=== PATIENT | male | born 1990 | race Caucasian/White ===

== ENCOUNTER → 2016-11-21 | Outpatient (CLI) | payer BC ==
[~2016-11-21] MED LIST: FLUT0.15 NAE; JUICE PLUS PO; LORA10TA44 PO; OXYC-57 PO
[2016-11-21 13:17] LABS: BASO % 0.6 %; BASO ABS # 0.04 K/uL (0-0.2); COMPLETE YES; EOS % 1.5 %; HEMATOCRIT 44.7 % (42-52); IG% 0.1 %; LYMPH % 21.2 %; LYMPH ABS # 1.51 K/uL (1.2-3.4); MEAN CELL VOLUME 88.7 fL (80-100); MEAN CORPUSCULAR HEMOGLOBIN 30.4 pg (25-34); MEAN CORPUSCULAR HGB CONC 34.2 g/dl (32-36); MEAN PLATELET VOLUME 12.7 fL (7.4-10.4); MONO % 11.4 %; NEUT % 65.2 %; PLATELET COUNT 193 K/uL (130-400); RED BLOOD COUNT 5.04 M/uL (4.7-6.1); WHITE BLOOD COUNT 7.13 K/uL (4.8-10.8)
[2016-11-21 13:59] LABS: BLOOD UREA NITROGEN 9 mg/dl (7-18); CALCIUM 9.2 mg/dl (8.5-10.1); CARBON DIOXIDE 29 mmol/L (21-32); CHLORIDE 105 mmol/L (98-107); CREATININE 0.94 mg/dl (0.60-1.40); GLUCOSE 89 mg/dl (70-99); POTASSIUM 4.2 mmol/L (3.5-5.1); SODIUM 140 mmol/L (136-145)
== END | disposition home or self-care (01) ==
LOC: C.LABBC 10:53
PROVIDERS: ATTEND Surgery
DX: Z01.812 Encounter for preprocedural laboratory examination (principal); K40.90 Unilateral inguinal hernia, without obstruction or gangrene, not specified as recurrent

== ENCOUNTER → 2016-12-09 | Day surgery (SDC) | payer BC ==
[2016-11-21 14:11] VITALS: Ht 165.1 cm; Wt 63.6 kg
[~2016-12-09] VITALS: Ht 165.1 cm; Wt 63.6 kg
[~2016-12-09] MED LIST changes: +ATROPINE SULFATE 0.1 MG/ML 5ML SYR IV PRN; +BUPIVACAINE 0.5 % 5 MG/1 ML PF 10ML VIAL ONE; +DEXAMETHASONE SOD INJ 4 MG/ML VIAL IV PRN; +DEXAMETHASONE SOD INJ 4 MG/ML VIAL ONE; +EpHEDrine SULFATE INJ 50 MG/ML AMP IV PRN; +FENTANYL CITRATE INJ 50 MCG/1 ML 2 ML VIAL IV PRN; +FENTANYL CITRATE INJ 50 MCG/1 ML 2 ML VIAL ONE; +KETOROLAC TROMETHAMINE 30 MG/ML VIAL IV. PRN; +LABETALOL HCL IV 5 MG/ML 20ML IV PRN; +LACTATED RINGER'S 1000ML 1,000 ML IV SCH; +LIDOCAINE HCL 2% 2 ML VIAL (20MG/ML) ONE; +METOCLOPRAMIDE HCL INJ 5 MG/ML 2 ML VIAL IV PRN; +MIDAZOLAM HCL 1 MG/ML 2ML VIAL ONE; +MoRPHine SULFATE 10 MG/ML CARP/VIAL IV PRN; +ONDANSETRON INJ 2 MG/ML 2 ML VIAL IV PRN; +ONDANSETRON INJ 2 MG/ML 2 ML VIAL ONE; +OXYCODONE/ACETAMINOPHEN 5-325 TAB PO PRN; +PHENYLEPHRINE 100MCG/ML 5ML SYR IV PRN; +PROPOFOL IV EMULSION 10 MG/ML 20 ML VIAL IV ONE; +SODIUM CHLORIDE 0.9% 1000ML 1,000 ML IV SCH
--- NOTE | 2016-12-09 07:29 | History & Physical Bridge Note ---
H&P Re-Evaluation Bridge Note: I have examined the patient, reviewed the History & Physical and in the interval since the performance of the History & Physical I have noted the following changes of clinical significance: No changes noted pt marked, mother ans SO taking pictures
--- NOTE | 2016-12-09 09:42 | Medical Student: [facility] ---
Immediate Operative Summary Operative Date Dec 09, 2016. Pre-Operative Diagnosis Right Inguinal Hernia Post-Operative Diagnosis Same Procedure(s) Performed Right inguinal hernia repair Surgeon Dr. Alcaraz Iron Installer Surgeon(s) LAUREN Wynn Estimated Blood Loss 5 cc Findings Right indirect inguinal hernia Specimens Right indirect inguinal hernia sac Drains none Anesthesia General Complication(s) None Disposition Recovery Room / PACU
--- NOTE | 2016-12-09 09:43 | [facility] Post Operative Brief Note ---
Immediate Operative Summary Operative Date Dec 09, 2016. Pre-Operative Diagnosis Right Inguinal Hernia Post-Operative Diagnosis indirect Same Procedure(s) Performed Right Inguina (indirect)l Hernia Open Repair(delmer) Surgeon Dr. Alcaraz Geomagnetist Surgeon(s) Alvaro Wynn PA-C Estimated Blood Loss 5ml Findings indirect scrotal hernia Specimens A. Right Inguinal Indirect Hernia Sac
--- NOTE | 2016-12-09 09:45 | Discharge Instructions ---
Discharge Instructions Date of Service Dec 09, 2016. Admission Reason for Admission: Right Inguinal Hernia Discharge Discharge Diagnosis / Problem: Right Inguinal Hernia Discharge Goals Goal(s): Decrease discomfort, Improve function Activity Recommendations Activity Limitations: as noted below Lifting Limitations: no more than 10 pounds Exercise/Sports Limitations: until after follow-up appointment May Resume Sexual Activity: after follow-up appointment Shower/Bathe: tomorrow . Instructions / Follow-Up Instructions / Follow-Up Please follow-up with Dr. Alcaraz in the office in 4 weeks. Please call the office at [phone] to make an appointment to have your reggie removed in 1 week. Any other questions or concerns, please call the office at [phone]. Current Hospital Diet Patient's current hospital diet: Discharge Diet Recommended Diet: Regular Diet Procedures Procedures Performed: Right Inguinal Hernia Open Repair Pending Studies Studies pending at discharge: no Medical Emergencies . Who to Call and When: Medical Emergencies: If at any time you feel your situation is an emergency, please call 911 immediately. . Non-Emergent Contact Non-Emergency issues call your: Primary Care Provider, Surgeon Call Non-Emergent contact if: temperature is above 101.5, your pain is not controlled, wound has increased drainage, wound has increased redness . "Provider Documentation" section prepared by Mariam Wynn. VTE Core Measure Inpt VTE Proph given/why not?: Unfractionated heparin SQ, SCD's
--- NOTE | 2016-12-09 10:18 | Anesthesia Progress Nt - [facility] ---
Anesthesia Post Op Note Date & Time Dec 09, 2016 at 10:17 Vital Signs Pain Intensity: 7 Vital Signs Past 12 Hours Date Time Temp Pulse Resp B/P Pulse Ox O2 Delivery O2 Flow Rate FiO2 12/09/16 10:11 66 10 12/09/16 10:11 65 10 97 12/09/16 10:10 129/90 12/09/16 10:06 83 11 100 12/09/16 10:06 82 11 12/09/16 10:05 131/67 12/09/16 10:01 72 17 12/09/16 10:01 71 17 100 12/09/16 09:56 60 9 12/09/16 09:56 61 9 100 12/09/16 09:55 114/78 12/09/16 09:51 62 18 100 12/09/16 09:51 62 18 12/09/16 09:50 131/83 12/09/16 09:49 62 12 12/09/16 09:49 62 12 100 12/09/16 09:45 118/90 12/09/16 09:44 60 14 12/09/16 09:44 60 14 100 12/09/16 09:40 135/82 12/09/16 09:39 37.1 91 16 129/91 100 Diffusion Mask 6 12/09/16 09:39 82 13 129/91 100 12/09/16 09:39 82 13 12/09/16 07:28 36.5 65 16 136/83 97 Room Air Notes Mental Status: alert / awake / arousable, participated in evaluation Pt Amnestic to Procedure: Yes Nausea / Vomiting: adequately controlled Pain: adequately controlled Airway Patency, RR, SpO2: stable & adequate BP & HR: stable & adequate Hydration State: stable & adequate Anesthetic Complications: no major complications apparent
[2016-12-09 10:32] VITALS: TEMP 36.6
[2016-12-09 11:15] VITALS: BP 121/80; PULSE 66; O2SAT 98
--- NOTE | 2016-12-09 11:25 | OPERATIVE REPORT ---
DATE OF OPERATION: 12/09/2016 PREOPERATIVE DIAGNOSIS: Right inguinal hernia, scrotal. POSTOPERATIVE DIAGNOSIS: Right indirect scrotal hernia. PROCEDURE: Bassini repair of the right indirect scrotal hernia. SURGEON: Dr. Alcaraz. NIGHT ASSISTANT: Mariam Wynn PA-C. SUMMARY: The patient was brought into the operating room theater. The lower quadrant scrotal was prepped with Betadine solution and properly draped. We made an incision parallel to the inguinal ligament, deepened through subcutaneous tissue onto the external oblique, which was opened along the course of its fibers, more local was used underneath the external oblique. We had injected preemptive the incision 2 fingerbreadths medial anterior superior iliac crest for preemptive analgesia. The external oblique was along the course of its fibers down towards the external ring, of course the internal ring appeared to be lower than normal. We actually were a little bit lower than normally onto the external oblique fascia. At this point, hemostat was used to elevate the external oblique above and below, the nerve was not seen. We then dissected out and were able to elevate the cord and its structures. The patient had a significant amount of the cremasteric fibers along the cord as we elevated and eventually would use a [place] drain. We identified an indirect sac which was quite long, went all the way down to the scrotal area. As we working with the sac actually the testicle came into view in the wound. We freed the cord structure from the sac all the way down to the internal ring. The internal ring area was small in caliber. We then ligated with 3-0 silk suture hernial sac there and returned it retroperitoneally, divided the sac. At this point, the floor appeared to be satisfactory, but I did reinforce it using a Bassini repair with 0 interrupted silk sutures. Of note, I said, we were almost down to the shelving portion. Fortunately the patient has iliopubic tract that was prominent and we used that for some of the repair. Attention was placed in the internal ring. Once this had been completed, we then closed the external oblique on top of the cord with interrupted 3-0 silk suture, 2-0 Dexon subcutaneously, reggie for skin edges, dressing was applied. The procedure was tolerated well by the patient and was taken to recovery room in good condition. At the end of the procedure when the dressing was on I approached the right testicle and manually delivered it more into the sac. I attest to the content of the Intraoperative Record and any orders documented therein. Any exceptio ns are noted below.
== END | disposition home or self-care (01) ==
LOC: X.SURG 07:07
PROVIDERS: ATTEND Surgery
DX: K40.90 Unilateral inguinal hernia, without obstruction or gangrene, not specified as recurrent (principal); Z82.49 Family history of ischemic heart disease and other diseases of the circulatory system; Z83.3 Family history of diabetes mellitus